=== PATIENT | male | born 1970 | race Caucasian/White ===

== ENCOUNTER 2017-07-21 23:28 | Emergency (ER) | payer SELFPAY ==
[~2017-07-21] VITALS: Ht 175.3 cm; Wt 74.8 kg
[2017-07-22 00:54] LABS: Basophils # (auto) 0.1 uL; Basophils % (auto) 0.5 % (0.0-2.0); Eosinophils # (auto) 0.1 uL; Eosinophils % (auto) 0.9 % (0.0-7.0); Hematocrit 41.3 % (41.0-53.0); Lymphocytes % (auto) 12.2 % (10.0-50.0); Mean Corpuscular Hemoglobin 32.5 pg (28.0-32.0); Mean Corpuscular Hgb Conc. 33.9 g/dL (32.0-36.0); Mean Corpuscular Volume 95.7 fL (80.0-100.0); Monocytes # (auto) 0.8 uL; Monocytes % (auto) 5.2 % (0.0-12.0); Neutrophils # (auto) 13.2 uL; Neutrophils % (auto) 81.2 % (37.0-80.0); Nucleated Red Blood Cells % 0.1 %; Platelet Count (auto) 294 10^3/uL (140-450); Red Blood Cells 4.31 10^6/uL (4.5-5.90); Red Cell Distribution Width 13.7 % (11.8-14.3); White Blood Cell 16.2 10^3/uL (4.4-10.8)
[2017-07-22 01:26] LABS: Albumin 3.7 g/dL (3.4-5.0); BUN/Creatinine Ratio 19.8; Calcium 7.5 mg/dL (8.5-10.1); Magnesium 2.2 mg/dL (1.6-2.6); Potassium 3.4 mmol/L (3.5-5.1)
[2017-07-22 01:27] LABS: Salicylate < 1.7 mg/dL (2.8-20.0)
[2017-07-22 01:29] LABS: Acetaminophen < 2.0 ug/mL (10-30); Bilirubin, Total 0.2 mg/dL (0.2-1.0); Total Protein 7.4 g/dL (6.4-8.2)
[2017-07-22 03:05] VITALS: BP 146/89
== END 2017-07-22 03:05 | disposition home or self-care (01) ==
LOC: ER 23:28
DX: G92 Toxic encephalopathy (principal); F10.129 Alcohol abuse with intoxication, unspecified; F17.210 Nicotine dependence, cigarettes, uncomplicated; F11.10 Opioid abuse, uncomplicated; R42 Dizziness and giddiness
CPT/HCPCS: 36415; 80053; 80320; 80329; 83735; 85025; 93005

== ENCOUNTER 2021-04-10 09:00 | Emergency (ER) | payer SELFPAY ==
[~2021-04-10] VITALS: Ht 177.8 cm; Wt 81.6 kg
[2021-04-10] MEDS ORDERED: LIDOCAINE 2%HCL (LOCAL ANESTH.) INJ 20ML MDV ID ONE (10:45)
[2021-04-10] MEDS ORDERED: LIDOCAINE 2%HCL (LOCAL ANESTH.) INJ 10ml MDV IJ ONE (10:45)
[2021-04-10] MEDS ORDERED: NEOMYCIN-BACITRACIN-POLYM UNITDOSE PKG TOP OINT TOP ONE (10:45)
[2021-04-10 11:18] VITALS: BP 115/91
[2021-04-10] MEDS ORDERED: KETOROLAC TROMETH 30 MG/ML 1ML VIAL IV ONE (11:30)
== END 2021-04-10 11:43 | disposition home or self-care (01) ==
LOC: ER 09:00
DX: S01.81XA Laceration without foreign body of other part of head, initial encounter (principal); I10 Essential (primary) hypertension; F17.210 Nicotine dependence, cigarettes, uncomplicated; W55.12XA Struck by horse, initial encounter; Y93.89 Activity, other specified; Y92.89 Other specified places as the place of occurrence of the external cause; Y99.8 Other external cause status
CPT/HCPCS: 12014; 70450; 72125; 99284; J2001

== ENCOUNTER 2021-11-23 04:22 | Inpatient (IN) | payer SELFPAY ==
[~2021-11-23] VITALS: Ht 177.8 cm; Wt 87.4 kg
[2021-11-23 05:40] LABS: Basophils # (auto) 0.1 10 ^3/uL (0-0.2); Basophils % (auto) 0.7 % (0.0-2.0); Eosinophils # (auto) 0.1 10 ^3/uL (0-0.8); Hematocrit 41.5 % (41.0-53.0); Hemoglobin 14.2 g/dL (13.5-17.5); Lymphocytes # (auto) 1.8 10 ^3/uL (0.4-5.4); Lymphocytes % (auto) 14.6 % (10.0-50.0); Mean Corpuscular Hgb Conc. 34.3 g/dL (32.0-36.0); Mean Corpuscular Volume 93.4 fL (80.0-100.0); Monocytes # (auto) 0.6 10 ^3/uL (0-1.3); Monocytes % (auto) 4.6 % (0.0-12.0); Neutrophils # (auto) 9.8 10 ^3/uL (1.6-8.6); Neutrophils % (auto) 79.1 % (37.0-80.0); Red Blood Cells 4.44 10^6/uL (4.5-5.90); Red Cell Distribution Width 13.1 % (11.8-14.3); White Blood Cell 12.4 10^3/uL (4.4-10.8)
[2021-11-23 05:56] LABS: Albumin 4.1 g/dL (3.4-5.0); BUN/Creatinine Ratio 15.3; Magnesium 2.1 mg/dL (1.6-2.6); Potassium 3.9 mmol/L (3.5-5.1)
[2021-11-23 05:59] LABS: Bilirubin, Total 0.6 mg/dL (0.2-1.0); Total Protein 7.1 g/dL (6.4-8.2)
[2021-11-23] MEDS ORDERED: HYDROcodone-ACET 5/325MG TAB PO ONE (06:45)
[2021-11-23 07:22] LABS: Urine Bacteria MOD /hpf (None Seen); Urine Blood 3+ /uL (Negative); Urine Budding Yeast FEW /hpf (None Seen); Urine Mucus FEW (None Seen); Urine WBC 24 /hpf (0 - 3); Urine WBC Clumps PRESENT /hpf (None Seen)
[2021-11-23] MEDS ORDERED: cefTRIAXone 1GM/50ML D5W 50 ML IV ONE (08:00)
[2021-11-23] MEDS ORDERED: SODIUM CHLORIDE 0.9% 1,000 ML IV ONE ×2 (10:30→11:30)
[2021-11-23] MEDS ORDERED: ONDANSETRON HCL 4 MG/2 ML VIAL IV PRN (10:30)
[2021-11-23] MEDS ORDERED: hydrALAZINE HCL 20 MG/ML VL IV PRN (10:45)
[2021-11-23] MEDS ORDERED: MANNITOL FTV 25% 12.5 GM/50 ML 50 ML IV ONE (11:15)
[2021-11-23 11:31] LABS: INR 0.92 (0.9-1.15)
[2021-11-23 11:31] LABS: Alcohol, Urine < 3.0 mg/dL (0-10); Amphetamine Screen, Urine NEGATIVE (NEGATIVE); Barbiturate Scree,Urine NEGATIVE (NEGATIVE); Benzodiazephine Screen, Urine NEGATIVE (NEGATIVE); Cannabinoid Screen, Urine NEGATIVE (NEGATIVE); Cocaine Screen, Urine POSITIVE (NEGATIVE); Opiate Scree,Urine NEGATIVE (NEGATIVE); Phencyclidine Screen, Urine NEGATIVE (NEGATIVE)
[2021-11-23] MEDS: MORPHINE SULFATE INJ 2 MG/ml SYRG IV PRN (12:12)
[2021-11-23 18:36] VITALS: BP 148/101
[2021-11-23 20:00] VITALS: BP 125/76
[2021-11-23 22:00] VITALS: BP 125/76
[2021-11-24 05:00] VITALS: BP 125/81
[2021-11-24 05:37] LABS: Albumin 3.1 g/dL (3.4-5.0); Basophils # (auto) 0.1 10 ^3/uL (0-0.2); Basophils % (auto) 0.8 % (0.0-2.0); Calcium 8.1 mg/dL (8.5-10.1); Eosinophils # (auto) 0.2 10 ^3/uL (0-0.8); Hematocrit 38.4 % (41.0-53.0); Hemoglobin 13.2 g/dL (13.5-17.5); Lymphocytes # (auto) 1.7 10 ^3/uL (0.4-5.4); Mean Corpuscular Hemoglobin 32.1 pg (28.0-32.0); Mean Corpuscular Hgb Conc. 34.5 g/dL (32.0-36.0); Mean Corpuscular Volume 93.1 fL (80.0-100.0); Monocytes # (auto) 0.6 10 ^3/uL (0-1.3); Monocytes % (auto) 8.1 % (0.0-12.0); Neutrophils # (auto) 4.9 10 ^3/uL (1.6-8.6); Neutrophils % (auto) 65.1 % (37.0-80.0); Potassium 3.7 mmol/L (3.5-5.1); Red Blood Cells 4.12 10^6/uL (4.5-5.90); Red Cell Distribution Width 12.9 % (11.8-14.3); White Blood Cell 7.6 10^3/uL (4.4-10.8)
[2021-11-24 05:42] LABS: BUN/Creatinine Ratio 14.5; Bilirubin, Total 0.6 mg/dL (0.2-1.0); Total Protein 6.1 g/dL (6.4-8.2)
[2021-11-24 09:00] VITALS: BP 133/89
[2021-11-24] MEDS: cefTRIAXone 1GM/50ML D5W 50 ML IV SCH (09:02)
[2021-11-24] MEDS: NICOTINE 7MG/24HR TOPICAL PATCH TD SCH (09:44)
[2021-11-24] MEDS: MORPHINE SULFATE INJ 2 MG/ml SYRG IV PRN (12:00)
[2021-11-24 13:00] VITALS: BP 146/107
[2021-11-24] MEDS ORDERED: KETOROLAC TROMETH 30 MG/ML 1ML VIAL IV PRN ×2 (13:15→14:00)
[2021-11-24] MEDS ORDERED: HYDROcodone-ACET 10/325MG TAB PO PRN (14:00)
[2021-11-24 17:00] VITALS: BP 134/88
[2021-11-24] MEDS ORDERED: TAMSULOSIN HYDROCHLORIDE 0.4 MG CAP PO SCH (18:00)
[2021-11-24] MEDS ORDERED: DOCUSATE SOD 100 MG CAP PO PRN (19:15)
[2021-11-24 22:00] VITALS: BP 130/81
[2021-11-25 05:00] VITALS: BP 110/71
[2021-11-25 08:00] VITALS: BP 104/66
[2021-11-25 09:00] VITALS: BP 104/66
[2021-11-25] MEDS: cefTRIAXone 1GM/50ML D5W 50 ML IV SCH (09:40)
[2021-11-25] MEDS: NICOTINE 7MG/24HR TOPICAL PATCH TD SCH ×2 (09:41→10:00)
[2021-11-25] MEDS ORDERED: TRAM50TA2 PO (11:39)
[2021-11-25] MEDS ORDERED: TAM04C PO (11:39)
[2021-11-25] MEDS ORDERED: CIPR-173 PO (11:39)
[2021-11-25 12:02] VITALS: BP 104/66
== END 2021-11-25 13:30 | disposition home or self-care (01) | DRG 690 ==
LOC: ER 04:22 → OVERFLOW 10:27 → WEST WING 18:28
PROVIDERS: ADMIT Registered Nurse; ATTEND Family Medicine
DX: N13.6 Pyonephrosis (principal); N20.2 Calculus of kidney with calculus of ureter; N17.9 Acute kidney failure, unspecified; I10 Essential (primary) hypertension; Z20.822 Contact with and (suspected) exposure to COVID-19; E86.0 Dehydration
CPT/HCPCS: 36415; 74176; 76775; 80053; 80307; 80320; 81001; 83690; 83735; 84484; 85025; 85610; 93005; 96365; 96367; 96375; G0378; J0696; J1885; J2405